=== PATIENT | male | born 1950 | race Caucasian/White ===

== ENCOUNTER → 2023-11-02 08:52 | Outpatient (REF) | payer MEDICARE, OTHER, SELFPAY ==
[2023-11-02 12:11] LABS: ALT (SGPT) 14 U/L (0-50); AST (SGOT) 22 U/L (17-59); Albumin 3.8 g/dl (3.5-5.0); Alkaline Phosphatase 96 U/L (38-126); Blood Urea Nitrogen 21 mg/dl (9-20); Calcium 8.8 mg/dl (8.4-10.2); Carbon Dioxide 27 mmol/L (22-30); Chloride 104 mmol/L (98-107); Glucose 114 mg/dl (70-99); Potassium 4.6 mmol/L (3.5-5.1); Sodium 138 mmol/L (135-145); Total Protein 6.6 g/dl (6.3-8.2); eGFR > 60.00
[2023-11-02 12:43] LABS: PSA, Total - Screen 0.32 ng/ml (0.0-4.0)
[2023-11-02 12:45] LABS: Microalbumin, Random Urine 1.6 mg/dl (0.6-1.7); Microalbumin/creatinine Ratio 11.7 mg/g
[2023-11-02 15:01] LABS: Glycohemoglobin (HgbA1c) 5.8 % (4.0-5.6)
== END ==
LOC: HWLAB 08:52
PROVIDERS: ATTENDING PHYSICIAN Registered Nurse
DX: I25.10 Atherosclerotic heart disease of native coronary artery without angina pectoris (principal); E11.42 Type 2 diabetes mellitus with diabetic polyneuropathy; E11.59 Type 2 diabetes mellitus with other circulatory complications; Z12.5 Encounter for screening for malignant neoplasm of prostate
CPT/HCPCS: 36415; 80053; 82043; 82570; 83036; G0103

== ENCOUNTER → 2024-01-03 08:31 | Outpatient (REF) | payer MEDICARE, OTHER, SELFPAY ==
[2024-01-03 12:51] LABS: Glycohemoglobin (HgbA1c) 6.2 % (4.0-5.6)
[2024-01-03 12:58] LABS: ALT (SGPT) 13 U/L (0-50); AST (SGOT) 20 U/L (17-59); Albumin 3.7 g/dl (3.5-5.0); Alkaline Phosphatase 103 U/L (38-126); Blood Urea Nitrogen 19 mg/dl (9-20); Carbon Dioxide 33 mmol/L (22-30); Chloride 101 mmol/L (98-107); Glucose 104 mg/dl (70-99); Potassium 4.8 mmol/L (3.5-5.1); Sodium 136 mmol/L (135-145); Total Bilirubin 0.7 mg/dl (0.2-1.3); Total Protein 6.7 g/dl (6.3-8.2); eGFR > 60.00
== END ==
LOC: HWLAB 08:31
PROVIDERS: ATTENDING PHYSICIAN Registered Nurse
DX: E11.42 Type 2 diabetes mellitus with diabetic polyneuropathy (principal); E11.59 Type 2 diabetes mellitus with other circulatory complications
CPT/HCPCS: 36415; 80053; 83036

== ENCOUNTER → 2024-02-15 15:15 | Outpatient (REF) | payer MEDICARE, OTHER, SELFPAY | LOC: PAVMRI 15:15 | PROVIDERS: ATTENDING PHYSICIAN Physician Assistant Surgical; FAMILY PHYSICIAN Registered Nurse | DX: M47.812 Spondylosis without myelopathy or radiculopathy, cervical region (principal) | CPT/HCPCS: 72141 ==

== ENCOUNTER → 2024-03-15 06:25 | Day surgery (SDC) | payer MEDICARE, OTHER, SELFPAY ==
[2024-03-15 07:16] LABS: Glucose - Point of Care 89 mg/dl (70-99)
== END ==
LOC: GI 06:25
PROVIDERS: ATTENDING PHYSICIAN Specialist
DX: Z12.11 Encounter for screening for malignant neoplasm of colon (principal); Z86.010 Personal history of colon polyps
CPT/HCPCS: 45378; 82962

== ENCOUNTER → 2024-03-21 13:01 | Outpatient (REF) | payer MEDICARE, OTHER, SELFPAY | LOC: HWRAD 13:01 | PROVIDERS: ATTENDING PHYSICIAN Otolaryngology Facial Plastic Surgery; FAMILY PHYSICIAN Registered Nurse | DX: J32.0 Chronic maxillary sinusitis (principal); J34.2 Deviated nasal septum; G47.36 Sleep related hypoventilation in conditions classified elsewhere | CPT/HCPCS: 70486 ==

== ENCOUNTER → 2024-04-11 06:53 | Outpatient (REF) | payer MEDICARE, OTHER, SELFPAY ==
[2024-04-11 10:04] LABS: ALT (SGPT) 14 U/L (0-50); AST (SGOT) 24 U/L (17-59); Albumin 3.8 g/dl (3.5-5.0); Alkaline Phosphatase 90 U/L (38-126); Blood Urea Nitrogen 16 mg/dl (9-20); Calcium 9.1 mg/dl (8.4-10.2); Carbon Dioxide 28 mmol/L (22-30); Chloride 106 mmol/L (98-107); Glucose 91 mg/dl (70-99); HDL Cholesterol 36 mg/dl; LDL Cholesterol, Calculated 53 mg/dl; Potassium 3.9 mmol/L (3.5-5.1); Sodium 138 mmol/L (135-145); Total Bilirubin 1.3 mg/dl (0.2-1.3); Total Cholesterol 109 mg/dl (50-199); Total Protein 6.6 g/dl (6.3-8.2); Triglyceride 103 mg/dl (10-149); Very Low Density Lipoprotein 20 mg/dl (0-30); eGFR > 60.00
[2024-04-11 10:20] LABS: Glycohemoglobin (HgbA1c) 5.7 % (4.0-5.6)
== END ==
LOC: HWLAB 06:53
PROVIDERS: ATTENDING PHYSICIAN Registered Nurse
DX: E11.42 Type 2 diabetes mellitus with diabetic polyneuropathy (principal); E11.59 Type 2 diabetes mellitus with other circulatory complications
CPT/HCPCS: 36415; 80053; 80061; 83036

== ENCOUNTER → 2024-08-09 07:34 | Outpatient (REF) | payer MEDICARE, OTHER, SELFPAY ==
[2024-08-09 10:32] LABS: Blood Urea Nitrogen 17 mg/dl (9-20); Calcium 8.8 mg/dl (8.4-10.2); Carbon Dioxide 30 mmol/L (22-30); Chloride 104 mmol/L (98-107); Glucose 95 mg/dl (70-99); Potassium 4.2 mmol/L (3.5-5.1); Sodium 141 mmol/L (135-145); eGFR > 60.00
== END ==
LOC: HWLAB 07:34
PROVIDERS: ATTENDING PHYSICIAN Registered Nurse
DX: E11.42 Type 2 diabetes mellitus with diabetic polyneuropathy (principal)
CPT/HCPCS: 36415; 80048

== ENCOUNTER → 2024-08-17 12:50 | Outpatient (REF) | payer MEDICARE, OTHER, SELFPAY | LOC: HWLAB 12:50 | PROVIDERS: ATTENDING PHYSICIAN Registered Nurse | DX: Z12.5 Encounter for screening for malignant neoplasm of prostate (principal); Z85.46 Personal history of malignant neoplasm of prostate | CPT/HCPCS: G0103 ==

== ENCOUNTER → 2024-09-12 07:06 | Outpatient (REF) | payer MEDICARE, OTHER, SELFPAY ==
[2024-09-12 10:35] LABS: PSA, Total - Diagnostic 0.36 ng/ml (0.0-4.0)
== END ==
LOC: HWLAB 07:06
PROVIDERS: ATTENDING PHYSICIAN Specialist; FAMILY PHYSICIAN Registered Nurse
DX: C61 Malignant neoplasm of prostate (principal)
CPT/HCPCS: 36415; 84153

== ENCOUNTER → 2024-10-12 09:36 | Outpatient (REF) | payer MEDICARE, OTHER, SELFPAY | LOC: HWRAD 09:36 | PROVIDERS: ATTENDING PHYSICIAN Registered Nurse; REFERRING PHYSICIAN Psychiatry & Neurology Neurology | DX: M54.2 Cervicalgia (principal) | CPT/HCPCS: 72040 ==

== ENCOUNTER → 2024-10-15 06:33 | Outpatient (REF) | payer MEDICARE, OTHER, SELFPAY | LOC: MRI 3T 06:33 | PROVIDERS: ATTENDING PHYSICIAN Physician Assistant Surgical; FAMILY PHYSICIAN Registered Nurse | DX: M54.12 Radiculopathy, cervical region (principal) | CPT/HCPCS: 72141 ==

== ENCOUNTER 2024-10-24 10:34 | Emergency (ER) | payer MEDICARE, OTHER, SELFPAY ==
[2024-10-24 10:50] VITALS: BP 136/85
--- NOTE | 2024-10-24 12:41 | ED.GENMED ---
History of Present Illness
General
Chief Complaint: Musculo-Skeletal Complaint
Source: patient and family
Time Seen by Provider: 10/24/24 11:40
Nursing documentation reviewed up to this point in time: agreed with
History of Present Illness
History of Present Illness:
Patient is a 74 old male who presents to the ER for evaluation. Patient is from home and complains of' pain all over.' Patient has chronic neck and back issues however complains of intermittent pain in his joints and muscles of both upper lower
extremities to the point where he cannot walk or get out of bed. This pain is not new. He has multiple neck and back issues. He denies any bowel or bladder incontinence denies any recent illness fever chills. He is scheduled for pain management
on Wednesday. He reports some days he wakes up feeling great other days he has a lot of pain. is concerned that he does too much.
Past History
Past History
ED Past Medical History: CAD, HTN, NIDDM, Other (Dizziness, back pain), Other (Circulation problems) and Other (Arthritis)
ED Past Surgical History: Cardiac (Cardiac catheterization), Cholecystectomy and Orthopedic (Left knee arthroscopy, left knee replacement, wound VAC placement)
Social History
Tobacco: Non-smoker
Personal:
Living: with family
Employment: Not employed
Review of Systems
Review of Systems
Allergies reviewed?: Yes
Other source history: family
Constitutional: Reports no symptoms; Denies fever, fatigue or chills
Respiratory: Reports no symptoms
Cardiac: Reports no symptoms
ABD/GI: Reports no symptoms
: Reports no symptoms; Denies incontinence
Musculoskeletal: Reports neck pain (Chronic neck and back pain) and back pain
Skin: Reports no symptoms
Neurological: Reports other (Denies any numbness tingling weakness)
Psychiatric: Reports no symptoms
Phy Exam
General Physical Exam
General Presentation: no apparent distress
General age: appears stated age
General Skin: warm and dry
General Habitus: normal
General Mental: alert
General Hydration: appears well hydrated
Cardiovascular Exam
Cardiovascular Exam: regular rate/rhythm, no murmur and normal peripheral pulses
Pulmonary Exam
Pulmonary Exam: lungs clear and no respiratory distress
Neurological Exam
Neurological Exam: alert, oriented x3, no motor deficits, no sensory deficits and other (Normal distal sensation bilaterally; gait is steady patient uses a cane)
Musculoskeletal Exam
Musculoskeletal Exam: full ROM
Skin Exam
Skin Exam: normal color and warm/dry
Psychiatric Exam
Psychiatric Exam: normal mood/affect
Course
Orders/Labs/Results
Orders:
Orders
10/24/24 13:05
IV Insert/Care/Rem.- Treatment PRN
Ketorolac [Toradol] 15 mg IV NOW STA
10/24/24 13:19
Complete Blood Count/With Diff Urgent
Comprehensive Metabolic Panel Urgent
Abnormal Lab Results
10/24/24
13:19
WBC 11.2 H 10^3/uL
(4.8-10.8)
MCHC 32.2 L g/dL
(33.0-37.0)
Abs Immat Gran (auto) 0.1 H 10^3/uL
(0-0.05)
Absolute Neuts (auto) 8.9 H 10^3/uL
(1.4-6.5)
Absolute Lymphs (auto) 1.0 L 10^3/uL
(1.2-3.4)
Absolute Monos (auto) 0.7 H 10^3/uL
(0.1-0.6)
Immature Gran % 1.0 H %
(0-0.5)
Neutrophils % 79.6 H %
(42.2-75.2)
Lymphocytes % 9.1 L %
(20.5-51.1)
Sodium 132 L mmol/L
(135-145)
Chloride 97 L mmol/L
(98-107)
BUN 21 H mg/dl
(9-20)
Glucose 167 H mg/dl
(70-99)
Total Bilirubin 2.0 H mg/dl
(0.2-1.3)
10/24/24 13:19
10/24/24 13:19
Vital Signs
Initial and Last Documented VS:
Initial Vital Signs
Temp Pulse Resp BP Pulse Ox
98.9 F 89 18 136/85 98
10/24/24 10:50 10/24/24 10:50 10/24/24 10:50 10/24/24 10:50 10/24/24 10:50
Last Documented Vital Signs
Temp Pulse Resp BP Pulse Ox
98.9 F 82 18 114/71 95
10/24/24 10:50 10/24/24 15:25 10/24/24 15:25 10/24/24 15:25 10/24/24 15:25
Electronic Science Teacher consulted with Physician
Electronic Science Teacher consulted with physician?: Yes
Name of Physician Consulted: Elias
MDM/Problems Addressed
MDM/Problems Addressed:
As documented patient is a 74-year-old male who presents to the ER complaining of pain' all over.' Patient has a history of neck issues and back issues and is scheduled to see pain management on Wednesday. He is on chronic pain medication. Patient
complains of pain intermittently all over. He recently had an outpatient cervical spine MRI. To review this. There is chronic findings however no acute changes. Patient was given Toradol and feeling better he is able to sit up on his own and
stand. He denies any actual fever or chills. Case reviewed with his outpatient provider Bryan Rocha NP.
Patient is feeling well enough to go home and does have pain management scheduled with Dr. Ashley on Wednesday however I did review with provider as is possible that this is a rheumatological process however nothing acute or emergent. He is nontoxic
is afebrile.
He has no obvious infection on exam he has no joint swelling. He is ambulatory with a cane
reports that patient has periods of intermittent pain however when he feels better he will' do too much including get on a tractor.' I did advise patient to rest. He does have prednisone at home which has been helpful he does have pain
medication which he may take.
He stable to be discharged home with pain management scheduled on Wednesday
*Pulse Oximetry
Patient hypoxic: no
*Critical Care Note
Total Time (30-74mins, 75-104mins- exclusive of procedures): Not Applicable
Data Reviewed
Review of Other/Old Records Reveals: Other (MRI c spine from October 15, 2024 reviewed)
Patient Management
Discussion with other providers: PCP (Bryan Rocha)
ED Attending Note
-
Portions of this chart may have been created with voice recognition software.� Occasional wrong word or��sound alike� substitutions may have occurred due to the inherent limitations of voice recognition software.
Discharge Plan
Departure
Patient Disposition: Home (Routine Discharge)
Date of Disposition: 10/24/24
Time of Disposition: 15:17
Patient with high blood pressure during this ER visit?: Yes
Condition: Fair
Covid-19: Not Applicable
Discharge Problem:
chronic pain
Instructions: BLOOD PRESSURE
Prescriptions:
No Action
aspirin 81 MG tablet
81 mg PO DAILY
topiramate [Topamax] 200 MG tablet
200 mg PO DAILY
metformin 500 MG tablet
500 mg PO BID
atorvastatin 10 MG tablet
10 mg PO DAILY
diclofenac potassium 50 MG tablet
50 mg PO BID
escitalopram oxalate 20 MG tablet
20 mg PO DAILY
acetaminophen-codeine 1 TABLET tablet
1 - 2 tab PO Q4HPRN PRN (Reason: Mod-severe pain) Qty: 30 0RF
methylprednisolone [Medrol (Masoud)] 4 MG tablets,dose pack
4 tab PO . DIRECT Qty: 1 0RF
Rx Instructions:
Start 10/12/2019
ondansetron 8 mg tablet,disintegrating
8 mg PO TID PRN (Reason: nausea and vomiting) Qty: 20 0RF
oxycodone 5 mg tablet
5 mg PO Q4H PRN (Reason: Pain) Qty: 14 0RF
Referrals:
Osmany Ashley MD [Active] -
Bryan Rocha CRNP [Family Provider] -
Activity Restrictions/Additional Instructions:
As discussed please follow-up with pain management as scheduled. In addition continue to follow-up with your family doctor. You may take your pain medicine as previously recommended. Continue to take your steroids as previously prescribed.
REST! Avoid strenuous activities return if any worsening of symptoms
Interventions
Interventions:
*Risk Screen - Suicide Last Done: 10/24/24 10:50
*General Assessment Last Done: 10/24/24 10:50
*Neglect/Abuse Screening Last Done: 10/24/24 12:07
ED- Fall Risk Assessment Last Done: 10/24/24 15:26
*ED COVID-19 Vaccine History Last Done: 10/24/24 10:50
*Nursing Disposition Last Done: 10/24/24 15:26
ED-Musculoskeletal Assessment Last Done: 10/24/24 12:44
Discharge Date and Time
Discharge Date/Time: 10/24/24 15:27
Print Language: PALAUAN
[2024-10-24] MEDS: TORADOL 15 MG IV (13:19)
[2024-10-24 13:29] LABS: % Basophils 0.5 % (0-2); % Eosinophils 3.3 % (0-6); % Lymphocytes 9.1 % (20.5-51.1); % Monocytes 6.5 % (1.7-9.3); % Neutrophils 79.6 % (42.2-75.2); Absolute Basophils 0.1 10^3/uL (0-0.2); Absolute Eosinophils 0.4 10^3/uL (0-0.7); Absolute Immature Granulocytes 0.1 10^3/uL (0-0.05); Absolute Monocytes 0.7 10^3/uL (0.1-0.6); Absolute Neutrophils 8.9 10^3/uL (1.4-6.5); Hematocrit 45.6 % (39.0-52.0); Hemoglobin 14.7 g/dL (13.0-18.0); Mean Corp Hgb Conc. 32.2 g/dL (33.0-37.0); Mean Corpuscular Hgb 27.2 pg (27.0-31.0); Mean Corpuscular Volume 84.3 fL (80.0-94.0); Mean Platelet Volume 9.7 fL (7.4-10.4); Nucleated Red Blood Cells % 0 % (-); Platelet Count 240 10^3/uL (130-400); Red Blood Cell Count 5.41 10^6/uL (4.70-6.10); Red Cell Dist. Width 13.8 % (11.5-14.5); White Blood Cell Count 11.2 10^3/uL (4.8-10.8)
[2024-10-24 13:53] LABS: ALT (SGPT) 16 U/L (0-50); AST (SGOT) 17 U/L (17-59); Albumin 3.7 g/dl (3.5-5.0); Alkaline Phosphatase 88 U/L (38-126); Blood Urea Nitrogen 21 mg/dl (9-20); Calcium 9.1 mg/dl (8.4-10.2); Carbon Dioxide 29 mmol/L (22-30); Chloride 97 mmol/L (98-107); Glucose 167 mg/dl (70-99); Potassium 4.9 mmol/L (3.5-5.1); Sodium 132 mmol/L (135-145); Total Protein 6.7 g/dl (6.3-8.2); eGFR > 60.00
[2024-10-24 15:25] VITALS: BP 114/71
== END 2024-10-24 15:27 | disposition home or self-care (01) ==
LOC: EMR 10:34
PROVIDERS: Nurse Practitioner; EMERGENCY PHYSICIAN Emergency Medicine; FAMILY PHYSICIAN Registered Nurse
DX: G89.29 Other chronic pain (principal); E11.9 Type 2 diabetes mellitus without complications; I10 Essential (primary) hypertension; I25.10 Atherosclerotic heart disease of native coronary artery without angina pectoris; Z90.49 Acquired absence of other specified parts of digestive tract; Z96.652 Presence of left artificial knee joint
CPT/HCPCS: 96374; 99284; 80053; 85025

== ENCOUNTER 2024-11-19 03:38 | Emergency (ER) | payer MEDICARE, OTHER, SELFPAY ==
[2024-11-19 05:12] VITALS: BP 126/76
[2024-11-19 05:54] LABS: % Basophils 0.5 % (0-2); % Immature Granulocytes 0.7 % (0-0.5); % Lymphocytes 15.4 % (20.5-51.1); % Monocytes 7.7 % (1.7-9.3); % Neutrophils 71.7 % (42.2-75.2); Absolute Basophils 0.1 10^3/uL (0-0.2); Absolute Eosinophils 0.4 10^3/uL (0-0.7); Absolute Immature Granulocytes 0.1 10^3/uL (0-0.05); Absolute Lymphocytes 1.5 10^3/uL (1.2-3.4); Absolute Monocytes 0.7 10^3/uL (0.1-0.6); Absolute Neutrophils 6.8 10^3/uL (1.4-6.5); Hematocrit 41.4 % (39.0-52.0); Hemoglobin 13.6 g/dL (13.0-18.0); Mean Corp Hgb Conc. 32.9 g/dL (33.0-37.0); Mean Corpuscular Hgb 27.5 pg (27.0-31.0); Mean Corpuscular Volume 83.6 fL (80.0-94.0); Mean Platelet Volume 9.6 fL (7.4-10.4); Nucleated Red Blood Cells % 0 % (-); Platelet Count 239 10^3/uL (130-400); Red Blood Cell Count 4.95 10^6/uL (4.70-6.10); Red Cell Dist. Width 13.7 % (11.5-14.5); White Blood Cell Count 9.5 10^3/uL (4.8-10.8)
[2024-11-19 06:02] LABS: ALT (SGPT) 49 U/L (0-50); AST (SGOT) 34 U/L (17-59); Albumin 3.6 g/dl (3.5-5.0); Alkaline Phosphatase 100 U/L (38-126); Blood Urea Nitrogen 19 mg/dl (9-20); Calcium 9.1 mg/dl (8.4-10.2); Carbon Dioxide 25 mmol/L (22-30); Chloride 101 mmol/L (98-107); Glucose 182 mg/dl (70-99); Potassium 4.3 mmol/L (3.5-5.1); Sodium 135 mmol/L (135-145); Total Bilirubin 1.5 mg/dl (0.2-1.3); Total Protein 6.3 g/dl (6.3-8.2); eGFR > 60.00
[2024-11-19 06:12] LABS: NT-proBNP 38.6 pg/ml
--- NOTE | 2024-11-19 06:15 | ED.GENMED ---
History of Present Illness
General
Chief Complaint: Extremity Pain (non-traumatic)
Time Seen by Provider: 11/19/24 06:15
History of Present Illness
History of Present Illness:
TIME OF INITIAL ENCOUNTER: 6:15 AM
HPI: A couple of weeks ago, the patient started having bilateral hand and wrist pain. This is now associated with rather significant swelling of both hands. It was the point that he had to take his ring off and now cannot get the ring back on.
Although he appears short of breath, he denies shortness of breath and states that the rapid breathing is just due to the pain that he is in. He did take OxyContin last night.
EXAM:
GENERAL: Well appearing but appears in moderate distress due to pain in the hands
HEENT: Moist oral mucosa
CARDIOVASCULAR: No murmurs, normal heart rate, regular rhythm, No chest wall tenderness
PULMONARY: No respiratory distress, but he appears somewhat that he states is related to pain, breath sounds are clear and equal
ABDOMEN: Soft with no peritoneal signs, no tenderness
NEUROLOGIC: Excellent strength all extremities, no coordination deficits
PSYCHIATRIC: Appropriate mental status, normal insight and judgement
EXTREMITIES: Bilateral wrist and hand edema including the fingers, decreased active range of motion at the wrist and hands due to the swelling, no significant lower extremity swelling
SKIN: No rash, no lesions
NUMBER AND COMPLEXITY OF PROBLEMS ADDRESSED AT THE ENCOUNTER
� Chronic conditions affecting care: CAD, high blood pressure, diabetes
� Acute Exacerbation and/or Progression of Chronic Illness: This is an acute problem
� Differential Diagnosis includes: Osteoarthritis, rheumatoid arthritis unlikely given his age and no prior history, no evidence for arterial compromise as he has very strong pulses, diabetic neuropathy
AMOUNT AND/OR COMPLEXITY OF DATA TO BE REVIEWED AND ANALYZED
� I performed an independent evaluation of and my interpretation is:
EKG:
CT:
X-rays: X-rays of the hands show normal joints with no clear sign of osteoarthritis throughout the majority of the joints however it is noted that the bilateral CMC joints show degenerative changes, soft tissue swelling noted
Laboratory Studies: CBC and chemistries unremarkable however slight elevation of total bili noted with no other LFT abnormality, BNP 39, CRP 72, sed rate 36
Other:
� Review of other/old records: I reviewed records, the patient had a colonoscopy last year
� Clinical information was obtained by an independent historian: I spoke to the at bedside
� Prescriptions/Medications Considered but not given:
� Further testing considered but not performed:
RISK OF COMPLICATIONS AND/OR MORBIDITY OR MORTALITY OF PATIENT MANAGEMENT
� Social determinants of health affecting care: Lives at home with
� Discussion with other providers:
� Escalation of care including admission/observation vs risk of discharge considered: The patient appears rather uncomfortable. Will give a dose of Toradol. Initial basic blood work unremarkable. states he does have an
appointment to see a fuel handler this coming Wednesday. Of note, the patient is already on low-dose prednisone 5 mg daily
ANY OTHER UPDATES:
8:30 AM: I reassessed patient. He appears more comfortable but they patient states that he does not feel any better after the Toradol was given. Unclear etiology of patient swelling. He has strong pulses with good perfusion. He will be seeing a
fuel handler this week. He does have oxycodone at home which he uses intermittently. CRP and sed rate elevated�will give burst course of steroids for a few more days.
Past History
Past History
ED Past Medical History: CAD, HTN, NIDDM, Other (Dizziness, back pain), Other (Circulation problems) and Other (Arthritis)
ED Past Surgical History: Cardiac (Cardiac catheterization), Cholecystectomy and Orthopedic (Left knee arthroscopy, left knee replacement, wound VAC placement)
Social History
Tobacco: Non-smoker
Personal:
Living: with family
Employment: Not employed
Phy Exam
Physical Exam
Physical Exam:
See HPI
Course
Orders/Labs/Results
Orders:
Orders
11/19/24 05:38
BNP [NT-proBNP] Urgent
C-Reactive Protein Urgent
Comment: ADD ON
Complete Blood Count/With Diff Urgent
Comprehensive Metabolic Panel Urgent
Erythrocyte Sed Rate Urgent
Comment: ADD ON
11/19/24 06:23
Add On- LAB Urgent
Tests Added?: cRP and ESR
Ketorolac [Toradol] 15 mg IV NOW STA
CR Hand - Left Min 3 Views Urgent
Comment:
Reason For Exam: pain swelling
CR Hand - Right Min 3 Views Urgent
Comment:
Reason For Exam: pain swelling
11/19/24 08:24
Dexamethasone Sod Phosphate [Decadron] 10 mg IV NOW STA
Abnormal Lab Results
11/19/24
05:38
MCHC 32.9 L g/dL
(33.0-37.0)
Abs Immat Gran (auto) 0.1 H 10^3/uL
(0-0.05)
Absolute Neuts (auto) 6.8 H 10^3/uL
(1.4-6.5)
Absolute Monos (auto) 0.7 H 10^3/uL
(0.1-0.6)
Immature Gran % 0.7 H %
(0-0.5)
Lymphocytes % 15.4 L %
(20.5-51.1)
ESR 36 H mm/hour
(0-20)
Glucose 182 H mg/dl
(70-99)
Total Bilirubin 1.5 H mg/dl
(0.2-1.3)
C-Reactive Protein 72.20 H mg/L
(0.0-10.00)
11/19/24 05:38
11/19/24 05:38
Vital Signs
Initial and Last Documented VS:
Initial Vital Signs
Temp Pulse Resp Pulse Ox
36.7 C 100 28 98
11/19/24 03:41 11/19/24 03:41 11/19/24 03:41 11/19/24 03:41
Last Documented Vital Signs
Temp Pulse Resp BP Pulse Ox
37.2 C 88 20 126/76 97
11/19/24 06:00 11/19/24 07:00 11/19/24 07:00 11/19/24 05:12 11/19/24 05:16
*Critical Care Note
Total Time (30-74mins, 75-104mins- exclusive of procedures): Not Applicable
ED Attending Note
-
Portions of this chart may have been created with voice recognition software.� Occasional wrong word or��sound alike� substitutions may have occurred due to the inherent limitations of voice recognition software.
Discharge Plan
Departure
Patient Disposition: Home (Routine Discharge)
Date of Disposition: 11/19/24
Time of Disposition: 08:24
Patient with high blood pressure during this ER visit?: Yes
Discharge Problem:
Swelling of hand
Instructions: Swelling, BLOOD PRESSURE
Prescriptions:
New
prednisone 50 mg tablet
50 mg PO DAILY Qty: 4 0RF
No Action
aspirin 81 MG tablet
81 mg PO DAILY
topiramate [Topamax] 200 MG tablet
200 mg PO DAILY
metformin 500 MG tablet
500 mg PO BID
atorvastatin 10 MG tablet
10 mg PO DAILY
diclofenac potassium 50 MG tablet
50 mg PO BID
escitalopram oxalate 20 MG tablet
20 mg PO DAILY
acetaminophen-codeine 1 TABLET tablet
1 - 2 tab PO Q4HPRN PRN (Reason: Mod-severe pain) Qty: 30 0RF
methylprednisolone [Medrol (Masoud)] 4 MG tablets,dose pack
4 tab PO . DIRECT Qty: 1 0RF
Rx Instructions:
Start 10/12/2019
ondansetron 8 mg tablet,disintegrating
8 mg PO TID PRN (Reason: nausea and vomiting) Qty: 20 0RF
oxycodone 5 mg tablet
5 mg PO Q4H PRN (Reason: Pain) Qty: 14 0RF
Referrals:
UNKNOWN - PT DOES,NOT KNOW [Family Provider] -
Activity Restrictions/Additional Instructions:
Your white blood cell count is normal. We gave you a dose of Toradol and then Decadron. Both of these are anti-inflammatory medicines. Your sed rate is high at 36 and your C-reactive protein is also high at 72. Follow-up with your fuel handler
this week. Your blood sugar will increase while on the steroids temporarily. Next dose of steroids tomorrow morning.
Interventions
Interventions:
*Risk Screen - Suicide Last Done: 11/19/24 03:41
*General Assessment Last Done: 11/19/24 08:39
*Neglect/Abuse Screening Last Done: 11/19/24 03:41
*ED- Fall Risk Assessment Last Done: 11/19/24 08:39
*ED COVID-19 Vaccine History Last Done: 11/19/24 08:39
*Nursing Disposition Last Done: 11/19/24 08:39
ED-Skin Assessment Last Done: 11/19/24 05:17
ED-Peripheral Vascular Assessment Last Done: 11/19/24 05:16
ED- Pulmonary Assessment Last Done: 11/19/24 05:16
ED-Musculoskeletal Assessment Last Done: 11/19/24 05:16
ED- Cardiac Assessment Last Done: 11/19/24 05:15
Discharge Date and Time
Discharge Date/Time: 11/19/24 08:40
Print Language: MALIAN
[2024-11-19] MEDS: TORADOL 15 MG IV (06:26)
[2024-11-19 07:10] LABS: Erythrocyte Sed Rate 36 mm/hour (0-20)
[2024-11-19] MEDS: DECADRON 10 MG IV (08:27)
== END 2024-11-19 08:40 | disposition home or self-care (01) ==
LOC: EMR 03:38
PROVIDERS: Emergency Medicine; EMERGENCY PHYSICIAN Emergency Medicine
DX: M79.89 Other specified soft tissue disorders (principal); M79.642 Pain in left hand; M79.641 Pain in right hand; I25.10 Atherosclerotic heart disease of native coronary artery without angina pectoris; I10 Essential (primary) hypertension; E11.9 Type 2 diabetes mellitus without complications; Z79.52 Long term (current) use of systemic steroids; Z90.49 Acquired absence of other specified parts of digestive tract
CPT/HCPCS: 96374; 96375; 99284; 73130; 80053; 83880; 85025; 85652; 86140

== ENCOUNTER → 2024-11-23 06:48 | Outpatient (REF) | payer MEDICARE, OTHER, SELFPAY ==
[2024-11-23 09:52] LABS: ALT (SGPT) 22 U/L (0-50); AST (SGOT) 14 U/L (17-59); Albumin 3.5 g/dl (3.5-5.0); Alkaline Phosphatase 125 U/L (38-126); Blood Urea Nitrogen 25 mg/dl (9-20); Calcium 9.6 mg/dl (8.4-10.2); Carbon Dioxide 30 mmol/L (22-30); Chloride 105 mmol/L (98-107); Glucose 204 mg/dl (70-99); HDL Cholesterol 61 mg/dl; LDL Cholesterol, Calculated 65 mg/dl; Potassium 4.8 mmol/L (3.5-5.1); Sodium 141 mmol/L (135-145); Total Bilirubin 0.7 mg/dl (0.2-1.3); Total Cholesterol 143 mg/dl (50-199); Total Protein 6.5 g/dl (6.3-8.2); Triglyceride 85 mg/dl (10-149); Very Low Density Lipoprotein 17 mg/dl (0-30); eGFR > 60.00
[2024-11-23 09:54] LABS: % Basophils 0.2 % (0-2); % Eosinophils 0.1 % (0-6); % Immature Granulocytes 0.9 % (0-0.5); % Lymphocytes 15.6 % (20.5-51.1); % Monocytes 5.4 % (1.7-9.3); % Neutrophils 77.8 % (42.2-75.2); Absolute Immature Granulocytes 0.1 10^3/uL (0-0.05); Absolute Lymphocytes 1.6 10^3/uL (1.2-3.4); Absolute Monocytes 0.6 10^3/uL (0.1-0.6); Absolute Neutrophils 7.9 10^3/uL (1.4-6.5); Mean Corp Hgb Conc. 32.6 g/dL (33.0-37.0); Mean Corpuscular Hgb 27.6 pg (27.0-31.0); Mean Corpuscular Volume 84.6 fL (80.0-94.0); Mean Platelet Volume 10.8 fL (7.4-10.4); Nucleated Red Blood Cells % 0 % (-); Platelet Count 311 10^3/uL (130-400); Red Blood Cell Count 5.08 10^6/uL (4.70-6.10); Red Cell Dist. Width 13.7 % (11.5-14.5); White Blood Cell Count 10.2 10^3/uL (4.8-10.8)
[2024-11-23 10:19] LABS: Glycohemoglobin (HgbA1c) 8.2 % (4.0-5.6)
[2024-11-23 10:23] LABS: TSH Reflex To Free T4 0.94 uIU/ml (0.47-4.68)
[2024-11-23 10:27] LABS: Microalbumin, Random Urine < 0.6 mg/dl (0.6-1.7)
[2024-11-24 12:30] LABS: Lyme Antibody Screen, EIA Negative (Negative)
== END ==
LOC: HWLAB 06:48
PROVIDERS: ATTENDING PHYSICIAN Psychiatry & Neurology Neurology; FAMILY PHYSICIAN Registered Nurse
DX: E11.42 Type 2 diabetes mellitus with diabetic polyneuropathy (principal); E11.59 Type 2 diabetes mellitus with other circulatory complications; I25.10 Atherosclerotic heart disease of native coronary artery without angina pectoris; E78.5 Hyperlipidemia, unspecified; E03.9 Hypothyroidism, unspecified; R70.0 Elevated erythrocyte sedimentation rate; R79.82 Elevated C-reactive protein (CRP)
CPT/HCPCS: 36415; 80053; 80061; 82043; 82570; 83036; 84443; 85025; 86618

== ENCOUNTER → 2024-12-19 06:42 | Outpatient (REF) | payer MEDICARE, OTHER, SELFPAY ==
[2024-12-19 09:40] LABS: Creatine Phosphokinase 53 U/L (55-170)
[2024-12-19 09:59] LABS: Erythrocyte Sed Rate 13 mm/hour (0-20)
[2024-12-19 12:14] LABS: Hepatitis B Core Ab, Total Negative (Negative); Hepatitis B Surface Antibody Negative; Hepatitis C Antibody Negative (Negative)
[2024-12-20 15:03] LABS: CCP Antibody IgG/IgA 2 Units (0-19)
[2024-12-20 19:42] LABS: Rheumatoid Agglutinin Less Than 10 IU (<10 IU)
[2024-12-20 20:04] LABS: ANA, IgG Reflex to HEp-2 None Detected (None Detected)
[2024-12-21 06:00] LABS: Quantiferon Mitogen minus NIL 9.94 IU/mL; Quantiferon NIL 0.06 IU/mL; Quantiferon Plus TB1 minus NIL 0.01 IU/mL (<=0.34); Quantiferon Plus TB2 minus NIL 0.01 IU/mL (<=0.34); Quantiferon TB Gold Plus Negative (Negative)
== END ==
LOC: HWLAB 06:42
PROVIDERS: ATTENDING PHYSICIAN Physician Assistant; FAMILY PHYSICIAN Registered Nurse
DX: K75.9 Inflammatory liver disease, unspecified (principal); M35.3 Polymyalgia rheumatica; Z22.7 Latent tuberculosis
CPT/HCPCS: 36415; 82550; 85652; 86038; 86140; 86200; 86430; 86480; 86704; 86706; 86803

== ENCOUNTER → 2025-01-16 07:07 | Outpatient (REF) | payer MEDICARE, OTHER, SELFPAY ==
[2025-01-16 09:31] LABS: % Basophils 0.8 % (0-2); % Immature Granulocytes 1.1 % (0-0.5); % Lymphocytes 28.2 % (20.5-51.1); % Monocytes 6.7 % (1.7-9.3); % Neutrophils 61.2 % (42.2-75.2); Absolute Basophils 0.1 10^3/uL (0-0.2); Absolute Eosinophils 0.2 10^3/uL (0-0.7); Absolute Immature Granulocytes 0.1 10^3/uL (0-0.05); Absolute Lymphocytes 2.2 10^3/uL (1.2-3.4); Absolute Monocytes 0.5 10^3/uL (0.1-0.6); Absolute Neutrophils 4.9 10^3/uL (1.4-6.5); Hematocrit 39.9 % (39.0-52.0); Hemoglobin 13.3 g/dL (13.0-18.0); Mean Corp Hgb Conc. 33.3 g/dL (33.0-37.0); Mean Corpuscular Hgb 28.4 pg (27.0-31.0); Mean Corpuscular Volume 85.3 fL (80.0-94.0); Mean Platelet Volume 10.8 fL (7.4-10.4); Nucleated Red Blood Cells % 0 % (-); Platelet Count 190 10^3/uL (130-400); Red Blood Cell Count 4.68 10^6/uL (4.70-6.10); Red Cell Dist. Width 15.9 % (11.5-14.5)
[2025-01-16 09:35] LABS: ALT (SGPT) 16 U/L (0-50); AST (SGOT) 17 U/L (17-59); Albumin 3.8 g/dl (3.5-5.0); Alkaline Phosphatase 87 U/L (38-126); Blood Urea Nitrogen 17 mg/dl (9-20); Calcium 8.9 mg/dl (8.4-10.2); Carbon Dioxide 29 mmol/L (22-30); Chloride 106 mmol/L (98-107); Glucose 176 mg/dl (70-99); Potassium 4.3 mmol/L (3.5-5.1); Sodium 141 mmol/L (135-145); Total Bilirubin 0.8 mg/dl (0.2-1.3); Total Protein 6.3 g/dl (6.3-8.2); eGFR > 60.00
[2025-01-16 11:26] LABS: Erythrocyte Sed Rate 26 mm/hour (0-20)
== END ==
LOC: HWLAB 07:07
PROVIDERS: ATTENDING PHYSICIAN Student in an Organized Health Care Education/Training Program; FAMILY PHYSICIAN Registered Nurse
DX: M35.3 Polymyalgia rheumatica (principal); M79.89 Other specified soft tissue disorders
CPT/HCPCS: 36415; 80053; 85025; 85652; 86140

== ENCOUNTER → 2025-02-16 06:39 | Outpatient (REF) | payer MEDICARE, OTHER, SELFPAY ==
[2025-02-16 09:34] LABS: % Eosinophils 4.4 % (0-6); % Lymphocytes 30.1 % (20.5-51.1); % Monocytes 7.7 % (1.7-9.3); % Neutrophils 55.8 % (42.2-75.2); Absolute Basophils 0.1 10^3/uL (0-0.2); Absolute Eosinophils 0.3 10^3/uL (0-0.7); Absolute Immature Granulocytes 0.1 10^3/uL (0-0.05); Absolute Lymphocytes 2.2 10^3/uL (1.2-3.4); Absolute Monocytes 0.6 10^3/uL (0.1-0.6); Absolute Neutrophils 4.1 10^3/uL (1.4-6.5); Hematocrit 42.2 % (39.0-52.0); Mean Corp Hgb Conc. 33.2 g/dL (33.0-37.0); Mean Corpuscular Hgb 28.8 pg (27.0-31.0); Mean Corpuscular Volume 86.8 fL (80.0-94.0); Nucleated Red Blood Cells % 0 % (-); Platelet Count 233 10^3/uL (130-400); Red Blood Cell Count 4.86 10^6/uL (4.70-6.10); Red Cell Dist. Width 15.1 % (11.5-14.5); White Blood Cell Count 7.3 10^3/uL (4.8-10.8)
[2025-02-16 10:03] LABS: Erythrocyte Sed Rate 27 mm/hour (0-20)
[2025-02-16 10:36] LABS: ALT (SGPT) 17 U/L (0-50); AST (SGOT) 16 U/L (17-59); Albumin 4.2 g/dl (3.5-5.0); Alkaline Phosphatase 87 U/L (38-126); Blood Urea Nitrogen 22 mg/dl (9-20); Calcium 9.5 mg/dl (8.4-10.2); Carbon Dioxide 27 mmol/L (22-30); Chloride 106 mmol/L (98-107); Glucose 166 mg/dl (70-99); Potassium 4.5 mmol/L (3.5-5.1); Sodium 141 mmol/L (135-145); Total Protein 6.8 g/dl (6.3-8.2); eGFR > 60.00
[2025-02-16 11:23] LABS: Glycohemoglobin (HgbA1c) 8.8 % (4.0-5.6)
== END ==
LOC: HWLAB 06:39
PROVIDERS: ATTENDING PHYSICIAN Student in an Organized Health Care Education/Training Program; FAMILY PHYSICIAN Registered Nurse
DX: M35.3 Polymyalgia rheumatica (principal); M79.89 Other specified soft tissue disorders; E11.42 Type 2 diabetes mellitus with diabetic polyneuropathy; I25.10 Atherosclerotic heart disease of native coronary artery without angina pectoris; E11.59 Type 2 diabetes mellitus with other circulatory complications; E78.5 Hyperlipidemia, unspecified; Z85.46 Personal history of malignant neoplasm of prostate
CPT/HCPCS: 36415; 80053; 83036; 85025; 85652; 86140

== ENCOUNTER → 2025-03-19 06:21 | Outpatient (REF) | payer MEDICARE, OTHER, SELFPAY ==
[2025-03-19 09:28] LABS: Hematocrit 39.9 % (39.0-52.0); Hemoglobin 13.2 g/dL (13.0-18.0); Mean Corp Hgb Conc. 33.1 g/dL (33.0-37.0); Mean Corpuscular Volume 86.6 fL (80.0-94.0); Nucleated Red Blood Cells % 0 % (-); Platelet Count 167 10^3/uL (130-400); Red Cell Dist. Width 14.1 % (11.5-14.5)
[2025-03-19 09:38] LABS: ALT (SGPT) 18 U/L (0-50); AST (SGOT) 17 U/L (17-59); Albumin 4.0 g/dl (3.5-5.0); Alkaline Phosphatase 84 U/L (38-126); Blood Urea Nitrogen 18 mg/dl (9-20); Calcium 8.8 mg/dl (8.4-10.2); Carbon Dioxide 28 mmol/L (22-30); Chloride 106 mmol/L (98-107); Glucose 133 mg/dl (70-99); Potassium 4.3 mmol/L (3.5-5.1); Sodium 139 mmol/L (135-145); Total Protein 6.7 g/dl (6.3-8.2); eGFR > 60.00
[2025-03-19 09:40] LABS: C-Reactive Protein 29.00 mg/L (0.0-10.00)
== END ==
LOC: HWLAB 06:21
PROVIDERS: ATTENDING PHYSICIAN Student in an Organized Health Care Education/Training Program; FAMILY PHYSICIAN Registered Nurse
DX: M35.3 Polymyalgia rheumatica (principal); M79.89 Other specified soft tissue disorders
CPT/HCPCS: 36415; 80053; 85025; 85652; 86140

== ENCOUNTER → 2025-04-09 06:45 | Outpatient (REF) | payer MEDICARE, OTHER, SELFPAY ==
[2025-04-09 09:41] LABS: Hematocrit 39.5 % (39.0-52.0); Hemoglobin 12.8 g/dL (13.0-18.0); Mean Corp Hgb Conc. 32.4 g/dL (33.0-37.0); Mean Corpuscular Volume 89.0 fL (80.0-94.0); Nucleated Red Blood Cells % 0 % (-); Platelet Count 203 10^3/uL (130-400); Red Cell Dist. Width 13.5 % (11.5-14.5)
[2025-04-09 10:00] LABS: ALT (SGPT) 14 U/L (0-50); AST (SGOT) 19 U/L (17-59); Albumin 4.2 g/dl (3.5-5.0); Alkaline Phosphatase 64 U/L (38-126); Blood Urea Nitrogen 21 mg/dl (9-20); Calcium 9.2 mg/dl (8.4-10.2); Carbon Dioxide 27 mmol/L (22-30); Chloride 109 mmol/L (98-107); Glucose 119 mg/dl (70-99); Potassium 4.3 mmol/L (3.5-5.1); Sodium 142 mmol/L (135-145); Total Protein 6.8 g/dl (6.3-8.2); eGFR > 60.00
[2025-04-09 10:03] LABS: C-Reactive Protein 10.00 mg/L (0.0-10.00)
[2025-04-11 09:21] LABS: Albumin 3.67 g/dL (3.75-5.01); SPEP IFE Reflex Not Done; Total Protein-Electrophoresis 6.3 g/dL (6.3-8.2)
== END ==
LOC: HWLAB 06:45
PROVIDERS: ATTENDING PHYSICIAN Student in an Organized Health Care Education/Training Program; FAMILY PHYSICIAN Registered Nurse; REFERRING PHYSICIAN Psychiatry & Neurology Neurology
DX: C61 Malignant neoplasm of prostate (principal); E11.9 Type 2 diabetes mellitus without complications; E13.9 Other specified diabetes mellitus without complications; M35.3 Polymyalgia rheumatica; M79.89 Other specified soft tissue disorders; Z79.899 Other long term (current) drug therapy
CPT/HCPCS: 36415; 80053; 84153; 84154; 84155; 84165; 85025; 85652; 86140

== ENCOUNTER → 2025-05-08 07:35 | Outpatient (REF) | payer MEDICARE, OTHER, SELFPAY ==
[2025-05-08 10:37] LABS: Glycohemoglobin (HgbA1c) 6.4 % (4.0-5.6)
[2025-05-08 15:00] LABS: C-Reactive Protein 48.00 mg/L (0.0-10.00)
[2025-05-08 15:55] LABS: ALT (SGPT) 15 U/L (0-50); AST (SGOT) 21 U/L (17-59); Albumin 4.4 g/dl (3.5-5.0); Alkaline Phosphatase 67 U/L (38-126); Blood Urea Nitrogen 24 mg/dl (9-20); Calcium 9.5 mg/dl (8.4-10.2); Carbon Dioxide 27 mmol/L (22-30); Chloride 106 mmol/L (98-107); Glucose 110 mg/dl (70-99); HDL Cholesterol 42 mg/dl; LDL Cholesterol, Calculated 63 mg/dl; Potassium 4.6 mmol/L (3.5-5.1); Sodium 139 mmol/L (135-145); Total Protein 7.2 g/dl (6.3-8.2); Very Low Density Lipoprotein 24 mg/dl (0-30); eGFR 52.09
== END ==
LOC: HWLAB 07:35
PROVIDERS: ATTENDING PHYSICIAN Student in an Organized Health Care Education/Training Program; FAMILY PHYSICIAN Registered Nurse
DX: E11.9 Type 2 diabetes mellitus without complications (principal); E13.9 Other specified diabetes mellitus without complications; M35.3 Polymyalgia rheumatica; M79.89 Other specified soft tissue disorders; R70.0 Elevated erythrocyte sedimentation rate; R79.82 Elevated C-reactive protein (CRP); Z79.52 Long term (current) use of systemic steroids; Z79.899 Other long term (current) drug therapy; E11.42 Type 2 diabetes mellitus with diabetic polyneuropathy; E03.9 Hypothyroidism, unspecified
CPT/HCPCS: 36415; 80053; 80061; 83036; 84443; 85652; 86140

== ENCOUNTER → 2025-05-11 07:16 | Outpatient (REF) | payer MEDICARE, OTHER, SELFPAY ==
[2025-05-11 10:16] LABS: Blood Urea Nitrogen 21 mg/dl (9-20); Calcium 9.0 mg/dl (8.4-10.2); Carbon Dioxide 29 mmol/L (22-30); Chloride 108 mmol/L (98-107); Glucose 101 mg/dl (70-99); Potassium 4.4 mmol/L (3.5-5.1); Sodium 141 mmol/L (135-145); eGFR > 60.00
== END ==
LOC: HWRAD 07:16
PROVIDERS: ATTENDING PHYSICIAN Student in an Organized Health Care Education/Training Program; FAMILY PHYSICIAN Registered Nurse; REFERRING PHYSICIAN Psychiatry & Neurology Neurology
DX: E11.9 Type 2 diabetes mellitus without complications (principal); E13.9 Other specified diabetes mellitus without complications; M35.3 Polymyalgia rheumatica; M79.89 Other specified soft tissue disorders; R70.0 Elevated erythrocyte sedimentation rate; R79.82 Elevated C-reactive protein (CRP); Z79.52 Long term (current) use of systemic steroids; Z79.899 Other long term (current) drug therapy
CPT/HCPCS: 36415; 71250; 74176; 80048

== ENCOUNTER → 2025-06-11 08:14 | Outpatient (REF) | payer MEDICARE, OTHER, SELFPAY | LOC: HWRAD 08:14 | PROVIDERS: ATTENDING PHYSICIAN Registered Nurse | DX: M25.561 Pain in right knee (principal) | CPT/HCPCS: 73564 ==

== ENCOUNTER → 2025-08-03 06:59 | Outpatient (REF) | payer MEDICARE, OTHER, SELFPAY | LOC: HWRCS 06:59 | PROVIDERS: ATTENDING PHYSICIAN Nurse Practitioner Gerontology; FAMILY PHYSICIAN Registered Nurse | DX: I25.10 Atherosclerotic heart disease of native coronary artery without angina pectoris (principal); R42 Dizziness and giddiness; I73.9 Peripheral vascular disease, unspecified | CPT/HCPCS: 93306 ==

== ENCOUNTER → 2025-08-27 06:21 | Outpatient (REF) | payer MEDICARE, OTHER, SELFPAY ==
[2025-08-27 10:08] LABS: ALT (SGPT) 17 U/L (0-50); AST (SGOT) 20 U/L (17-59); Albumin 4.0 g/dl (3.5-5.0); Alkaline Phosphatase 100 U/L (38-126); Blood Urea Nitrogen 18 mg/dl (9-20); Calcium 9.3 mg/dl (8.4-10.2); Carbon Dioxide 29 mmol/L (22-30); Chloride 104 mmol/L (98-107); Glucose 118 mg/dl (70-99); HDL Cholesterol 42 mg/dl; LDL Cholesterol, Calculated 61 mg/dl; Potassium 4.9 mmol/L (3.5-5.1); Sodium 140 mmol/L (135-145); Total Protein 6.7 g/dl (6.3-8.2); Very Low Density Lipoprotein 18 mg/dl (0-30); eGFR > 60.00
[2025-08-27 10:36] LABS: Microalb - Urine Creatinine 157.400 mg/dl
[2025-08-27 10:37] LABS: PSA, Total - Screen 1.18 ng/ml (0.0-4.0)
[2025-08-27 10:40] LABS: Microalbumin, Random Urine 0.7 mg/dl (0.6-1.7)
[2025-08-27 11:14] LABS: Glycohemoglobin (HgbA1c) 6.0 % (4.0-5.9)
== END ==
LOC: HWLAB 06:21
PROVIDERS: ATTENDING PHYSICIAN Registered Nurse
DX: E11.42 Type 2 diabetes mellitus with diabetic polyneuropathy (principal); I25.10 Atherosclerotic heart disease of native coronary artery without angina pectoris; E11.59 Type 2 diabetes mellitus with other circulatory complications; E78.5 Hyperlipidemia, unspecified; G47.33 Obstructive sleep apnea (adult) (pediatric); E03.9 Hypothyroidism, unspecified; Z12.5 Encounter for screening for malignant neoplasm of prostate
CPT/HCPCS: 36415; 80053; 80061; 82043; 82570; 83036; 84443; G0103